=== PATIENT | male | born 1980 | race Caucasian/White ===

== ENCOUNTER 2017-05-09 05:32 | Day surgery (SDC) | payer OTHER ==
[~2017-05-09] VITALS: Ht 180.3 cm; Wt 99.0 kg
[2017-05-09] MEDS ORDERED: ADVIL200 MG PO (06:07)
[2017-05-09 06:24] VITALS: BP 129/85
[2017-05-09] MEDS ORDERED: PERCOCET 5/31 TABLET PO (08:56)
[2017-05-09] MEDS ORDERED: COLACE100 MG PO (08:58)
[2017-05-09 09:45] VITALS: BP 127/83
[2017-05-09 10:29] VITALS: BP 120/80
== END 2017-05-09 10:30 | disposition home or self-care (01) ==
LOC: SDC 05:32
PROC: 0JB70ZZ Excision of Back Subcutaneous Tissue and Fascia, Open Approach (ICD-10-PCS; principal; 2017-05-09)
DX: D17.9 Benign lipomatous neoplasm, unspecified (principal)
CPT/HCPCS: 88304; J0690; J1885; J2250; J2405; J3010